=== PATIENT | female | born 1975 | race American Indian/Alaskan Native ===

== ENCOUNTER 2017-04-02 19:22 | Emergency (ER) | payer SELFPAY ==
[2017-04-02 21:01] LABS: Bilirubin,Urine NEG (Negative); Blood,Urine LG (Negative); Ketones,Urine NEG (Negative); Leukocyte Esterase,Urine SM (Negative); Mucus,Urine 3+ /HPF; Nitrite,Urine NEG (Negative); Urobilinogen,Urine < 2.0 mg/dL (<2.0)
[2017-04-02 21:02] LABS: RBC,Urine > 182.0 /HPF (0.0-6.0)
[2017-04-02 21:42] LABS: Hematocrit 25.2 % (30.3-42.9); Hemoglobin 7.8 gm/dl (10.1-14.3); Mean Corpuscular HGB Conc 31 % (30-34); Mean Corpuscular Volume 71 fl (79-97); Platelet Count 236 K/mm3 (140-440); Red Blood Count 3.54 M/mm3 (3.65-5.03); Red Cell Distribution Width 19.3 % (13.2-15.2); White Blood Count 12.6 K/mm3 (4.5-11.0)
[2017-04-02 21:43] LABS: Mean Corpuscular Hemoglobin 22 pg (28-32)
[2017-04-02 22:03] LABS: Anion Gap 17 mmol/L; BUN/Creatinine Ratio 21.25; Blood Urea Nitrogen 17 mg/dL (7-17); Carbon Dioxide 30 mmol/L (22-30); Chloride 92.5 mmol/L (98-107); Glucose 418 mg/dL (65-100); Potassium 4.6 mmol/L (3.6-5.0); Sodium 135 mmol/L (137-145)
--- NOTE | 2017-04-02 22:14 | Ultrasound Report ---
FINAL REPORT PROCEDURE: US OB \T\lt; = 14 WEEKS FETUS TECHNIQUE: Real-time transabdominal sonography of the uterus, placenta, amniotic fluid, adnexa, and fetus was performed with image documentation. Measurements were obtained to determine age/size. M-mode Doppler was used to document heartbeat. CPT 38490 HISTORY: vaginal bleed with COMPARISON: No prior studies are available for comparison. FINDINGS: No intrauterine is identified. There is an intramural fibroid measuring 2.4 centimeters. The endometrium measures 18 millimeters. There is no endometrial fluid or mass. Left ovary is not seen. Right ovary measures 3.1 x 1.8 x 2.8 centimeters and contains 2 centimeter cyst. There is no free pelvic fluid. IMPRESSION: No demonstrated intrauterine or ectopic .
--- NOTE | 2017-04-02 22:16 | Ultrasound Report ---
FINAL REPORT PROCEDURE: US OB TRANSVAGINAL TECHNIQUE: Real-time transvaginal sonography of the uterus, placenta, amniotic fluid, adnexa, and fetus was performed with image documentation. Measurements were obtained to determine age/size. M-mode Doppler was used to document heartbeat. HISTORY: vaginal bleed with COMPARISON: No prior studies are available for comparison. FINDINGS: No intrauterine is identified. There is an intramural fibroid measuring 2.4 centimeters. The endometrium measures 18 millimeters. There is no endometrial fluid or mass. Left ovary is not seen. Right ovary measures 3.1 x 1.8 x 2.8 centimeters and contains 2 centimeter cyst. There is no free pelvic fluid. IMPRESSION: No demonstrated intrauterine or ectopic .
[2017-04-03 05:55] VITALS: BP 141/84
--- NOTE | 2017-04-04 10:50 | ED Elopement Review ---
ED Pt Elopement review - Results review Lab results: Laboratory Tests 04/02/17 04/02/17 04/02/17 00:10 19:57 20:21 WBC 12.6 H RBC 3.54 L Hgb 7.8 L Hct 25.2 L MCV 71 L MCH 22 L MCHC 31 RDW 19.3 H Plt Count 236 Sodium Potassium Chloride Carbon Dioxide Anion Gap BUN Creatinine Estimated GFR BUN/Creatinine Ratio Glucose Calcium Troponin T HCG, Quant Urine Color Yellow Urine Turbidity Cloudy Urine pH 6.0 Ur Specific [place] 1.025 Urine Protein 100 mg/dl Urine Glucose (UA) Neg Urine Ketones Neg Urine Blood Lg Urine Nitrite Neg Urine Bilirubin Neg Urine Urobilinogen < 2.0 Ur Leukocyte Esterase Sm Urine WBC (Auto) 124.0 H Urine RBC (Auto) > 182.0 U Epithel Cells (Auto) 10.0 Urine Mucus 3+ Blood Type A POSITIVE Antibody Screen TNR SAMANTHA Antibody Screen Negative 04/02/17 04/02/17 04/02/17 20:21 20:21 20:21 WBC RBC Hgb Hct MCV MCH MCHC RDW Plt Count Sodium 135 L Potassium 4.6 Chloride 92.5 L Carbon Dioxide 30 Anion Gap 17 BUN 17 Creatinine 0.8 Estimated GFR > 60 BUN/Creatinine Ratio 21.25 Glucose 418 H Calcium 9.0 Troponin T < 0.010 HCG, Quant 41709 H Urine Color Urine Turbidity Urine pH Ur Specific [place] Urine Protein Urine Glucose (UA) Urine Ketones Urine Blood Urine Nitrite Urine Bilirubin Urine Urobilinogen Ur Leukocyte Esterase Urine WBC (Auto) Urine RBC (Auto) U Epithel Cells (Auto) Urine Mucus Blood Type Antibody Screen SAMANTHA Antibody Screen - Call Back decision Pt Call Back Decision: Call pt to return to ED WILLIAM (questionable or probable miscarriage, UTI, tachycardia)
== END 2017-04-03 07:02 | disposition left against medical advice (07) ==
LOC: ED 19:22
DX: O26.899 Other specified pregnancy related conditions, unspecified trimester (principal); R05 Cough; Z3A.00 Weeks of gestation of pregnancy not specified; Z53.21 Procedure and treatment not carried out due to patient leaving prior to being seen by health care provider
CPT/HCPCS: 36415; 76801; 76817; 80048; 81001; 84484; 84702; 85027; 86850; 86900; 86901; 93005; 93010